=== PATIENT | female | born 1950 | race Caucasian/White ===

== ENCOUNTER → 2017-02-01 | Outpatient (CLI) | payer OTHER | END | disposition home or self-care (01) | LOC: CFH 08:34 | PROVIDERS: ATTEND Internal Medicine | DX: Z12.31 Encounter for screening mammogram for malignant neoplasm of breast (principal); Z13.820 Encounter for screening for osteoporosis; N95.1 Menopausal and female climacteric states; M85.88 Other specified disorders of bone density and structure, other site | CPT/HCPCS: 77080; G0202 ==

== ENCOUNTER → 2017-02-15 | Outpatient (CLI) | payer OTHER | END | disposition home or self-care (01) | LOC: CFH 01:26 | PROVIDERS: ATTEND Internal Medicine | DX: N64.89 Other specified disorders of breast (principal); N63 Unspecified lump in breast | CPT/HCPCS: 76641; G0206 ==

== ENCOUNTER → 2017-03-29 | Outpatient (CLI) | payer OTHER ==
[~2017-03-29] MED LIST: 5-HY100C PO; BIOT5CAP3 PO; CALC1CAP8 PO; FLAX100029 PO; INUL1TAB4 PO; LEVO88TA32 PO; LISI-167 PO; METF500T4 PO; OMEG1CAP34 PO; TURM500C7 PO; VITA150T PO
[2017-03-29 15:10] LABS: ASPARTATE AMINO TRANSFERASE 22 U/L (15-37); BLOOD UREA NITROGEN 13 mg/dL (7-18)
== END | disposition home or self-care (01) ==
LOC: STAR 13:34
PROVIDERS: ATTEND Surgery
DX: Z01.818 Encounter for other preprocedural examination (principal); C50.212 Malignant neoplasm of upper-inner quadrant of left female breast; C50.412 Malignant neoplasm of upper-outer quadrant of left female breast; I10 Essential (primary) hypertension; E03.9 Hypothyroidism, unspecified; E11.8 Type 2 diabetes mellitus with unspecified complications
CPT/HCPCS: 36415; 80053; 93005

== ENCOUNTER 2017-04-05 12:03 | Day surgery (SDC) | payer OTHER ==
[~2017-04-05] VITALS: Ht 154.9 cm; Wt 81.0 kg
[2017-04-05] MEDS ORDERED: LACTATED RINGERS 1,000 ML IV SCH (12:42)
[2017-04-05] MEDS ORDERED: LIDOCAINE 1%, 2ML ONE (12:44)
[2017-04-05] MEDS ORDERED: LIDOCAINE 1%, 2ML SQ PRN (13:00)
[2017-04-05] MEDS ORDERED: hydrALAzine 20 MG/ML, 1ML IV PRN (13:30)
[2017-04-05] MEDS ORDERED: MIDAZOLAM 1 MG/ML, 2ML IV PRN (13:30)
[2017-04-05] MEDS ORDERED: LABETALOL 5MG/ML, 20ML IV PRN (13:30)
[2017-04-05] MEDS ORDERED: EPHEDRINE 50 MG/ML, 1ML IVPush PRN (13:30)
[2017-04-05] MEDS ORDERED: OXYcodone 5 MG/5 ML ORAL.SOL UDC PO PRN (13:30)
[2017-04-05] MEDS ORDERED: HYDROcodone/APAP 7.5-325MG/15ML UDC PO PRN (13:30)
[2017-04-05] MEDS ORDERED: PROMETHAZINE 25 MG/ML, 1ML IV PRN (13:30)
[2017-04-05] MEDS ORDERED: MEPERIDINE/PF 25MG/0.5ML IVPush PRN (13:30)
[2017-04-05] MEDS ORDERED: ACETAMINOPHEN 325 MG TABLET PO PRN (13:30)
[2017-04-05] MEDS ORDERED: ONDANSETRON 2MG/ML, 2ML IVPush PRN ×2 (13:30→18:30)
[2017-04-05] MEDS ORDERED: NEOSTIGMINE 1 MG/ML, 10ML ONE (15:10)
[2017-04-05] MEDS ORDERED: PROPOFOL 10 MG/ML, 50ML ONE (15:10)
[2017-04-05] MEDS ORDERED: CEFAZOLIN 1,000 MG ONE (15:10)
[2017-04-05] MEDS ORDERED: ESMOLOL 100 MG/10 ML ONE (15:10)
[2017-04-05] MEDS ORDERED: ROCURONIUM 10 MG/ML ONE (15:10)
[2017-04-05] MEDS ORDERED: GLYCOPYRROLATE 0.2MG/1ML ONE (15:10)
[2017-04-05] MEDS ORDERED: LABETALOL 5MG/ML, 20ML ONE (15:10)
[2017-04-05] MEDS ORDERED: ONDANSETRON 2MG/ML, 2ML ONE (15:10)
[2017-04-05] MEDS ORDERED: ROPIvacaine/PF 0.5%, 30 ML ONE (15:52)
[2017-04-05] MEDS: FENTANYL PF 100 MCG/2ML IV PRN ×3 (17:15→17:40)
[2017-04-05] MEDS ORDERED: HYDROmorphone 1 MG/ML, 1ML ONE (17:40)
[2017-04-05] MEDS: HYDROmorphone 1 MG/ML, 1ML IV PRN ×2 (17:51→17:58)
[2017-04-05] MEDS ORDERED: HYDROcodone/APAP 5/325 TABLET PO PRN (18:30)
[2017-04-05] MEDS ORDERED: HYDROmorphone 2 MG/ML, 1ML IVPush PRN (18:30)
[2017-04-05] MEDS ORDERED: DIPHENHYDRAMINE 50 MG/ML, 1ML IVPush PRN (18:30)
[2017-04-05] MEDS ORDERED: SCOPOLAMINE PATCH, 1.5MG PATCH.TD72 TD ONE ×2 (20:00→20:02)
== END 2017-04-05 20:25 ==
LOC: OUT 12:03
PROVIDERS: ATTEND Surgery
DX: C50.912 Malignant neoplasm of unspecified site of left female breast (principal); E11.9 Type 2 diabetes mellitus without complications; I10 Essential (primary) hypertension; E03.9 Hypothyroidism, unspecified; E66.9 Obesity, unspecified; Z68.33 Body mass index [BMI] 33.0-33.9, adult; Z90.710 Acquired absence of both cervix and uterus
CPT/HCPCS: 19301; 38525; 82962; J1170; J2405; J2795; J3010; J3490; J7120; 38792; 88307; 88329; 88333; C1729; J0690; J2250; J2704; J2710; A9541

== ENCOUNTER → 2017-07-29 | Outpatient (CLI) | payer OTHER ==
[~2017-07-29] MED LIST changes: -5-HY100C PO; +5-HY100C3 PO; -LEVO88TA32 PO; +LEVO88TA43 PO
== END | disposition home or self-care (01) ==
LOC: ROC 10:11
PROVIDERS: ATTEND Radiology Radiation Oncology
DX: C50.212 Malignant neoplasm of upper-inner quadrant of left female breast (principal)
CPT/HCPCS: 99212; G0463

== ENCOUNTER → 2017-09-14 | Outpatient (CLI) | payer OTHER | END | disposition home or self-care (01) | LOC: CFH 11:30 | PROVIDERS: ATTEND Radiology Radiation Oncology | DX: C50.212 Malignant neoplasm of upper-inner quadrant of left female breast (principal); E11.9 Type 2 diabetes mellitus without complications; I10 Essential (primary) hypertension; Z92.3 Personal history of irradiation; Z90.12 Acquired absence of left breast and nipple | CPT/HCPCS: 77065 ==

== ENCOUNTER → 2018-02-07 | Outpatient (CLI) | payer OTHER | END | disposition home or self-care (01) | LOC: CFH 09:02 | PROVIDERS: ATTEND Internal Medicine Hematology & Oncology | DX: Z12.31 Encounter for screening mammogram for malignant neoplasm of breast (principal); Z85.3 Personal history of malignant neoplasm of breast | CPT/HCPCS: 77063; 77067 ==

== ENCOUNTER → 2018-06-22 | Outpatient (CLI) | payer OTHER ==
[~2018-06-22] MED LIST changes: +METF500T17 PO; -METF500T4 PO
== END | disposition home or self-care (01) ==
LOC: ROC 07:26
PROVIDERS: ATTEND Radiology Radiation Oncology
DX: C50.212 Malignant neoplasm of upper-inner quadrant of left female breast (principal)
CPT/HCPCS: 99213; G0463